=== PATIENT | female | born 1975 | race Caucasian/White ===

== ENCOUNTER 2016-08-29 14:33 | Outpatient (CLI) | payer MEDICAID | END 2016-08-29 14:34 | disposition home or self-care (01) | DX: Z36 Encounter for antenatal screening of mother (principal) ==

== ENCOUNTER 2016-10-31 10:16 | Outpatient (CLI) | payer MEDICAID | END 2016-10-31 10:17 | disposition home or self-care (01) | DX: Z36 Encounter for antenatal screening of mother (principal) ==

== ENCOUNTER 2016-11-27 12:30 | Outpatient (CLI) | payer MEDICAID | END 2016-11-27 12:31 | disposition home or self-care (01) | DX: Z36 Encounter for antenatal screening of mother (principal) ==

== ENCOUNTER 2016-12-24 08:00 | Outpatient (CLI) | payer MEDICAID | END 2016-12-24 08:01 | disposition home or self-care (01) | DX: Z36 Encounter for antenatal screening of mother (principal) ==

== ENCOUNTER 2016-12-25 09:11 | Outpatient (CLI) | payer MEDICAID | END 2016-12-25 09:12 | disposition home or self-care (01) | DX: Z36 Encounter for antenatal screening of mother (principal) ==

== ENCOUNTER 2017-01-05 10:38 | Inpatient (IN) | payer MEDICAID ==
[2017-01-05] MEDS ORDERED: OXYTOCIN 10 UNIT/ML VIAL ONE (11:01)
[2017-01-05] MEDS ORDERED: SODIUM CHLORIDE FLUSH 0.9% 10 ML SYRINGE IVP ONE (11:02)
[2017-01-05] MEDS ORDERED: OXYTOCIN/LACTATED RINGERS 250 ML IV ONE ×3 (11:05→12:17)
[2017-01-05] MEDS ORDERED: LACTATED RINGERS 1,000 ML IV ONE (11:06)
[2017-01-05 11:32] LABS: BASOPHILS # (AUTO) 0.1 10^3/uL (0.0-0.1); BASOPHILS % (AUTO) 0.8 %; EOSINOPHILS # (AUTO) 0.1 10^3/uL (0.0-0.7); EOSINOPHILS % (AUTO) 0.5 %; HCT - HEMATOCRIT 36.9 % (37.0-47.0); HGB - HEMOGLOBIN 12.5 g/dL (12.0-16.0); LYMPHOCYTES # (AUTO) 2.2 10^3/uL (1.5-3.5); LYMPHOCYTES % (AUTO) 19.8 %; MEAN CORPUSCULAR HEMOGLOBIN 28.2 pg (27.0-31.0); MEAN CORPUSCULAR HGB CONC 33.9 g/dL (32.0-36.0); MEAN CORPUSCULAR VOLUME 83.3 fL (81.0-99.0); MEAN PLATELET VOLUME 9.2 fL (7.9-10.8); MONOCYTES # (AUTO) 0.5 10^3/uL (0.0-1.0); MONOCYTES % (AUTO) 4.7 %; NEUTROPHILS # (AUTO) 8.1 10^3/uL (1.5-6.6); NEUTROPHILS % (AUTO) 74.2 %; NUCLEATED RED BLOOD CELLS AUTO 0.1 /100WBC; RED BLOOD COUNT 4.43 10^6/uL (4.20-5.40); RED CELL DISTRIBUTION WIDTH 14.4 % (12.0-15.0)
[2017-01-05] MEDS ORDERED: PENICILLIN G POTASSIUM 5,000,000 UNIT in SODIUM CHLORIDE 0.9% MINIBAG 100 ML IV ONE (12:09)
[2017-01-05] MEDS ORDERED: SODIUM CHLORIDE FLUSH 0.9% 10 ML SYRINGE IVP PRN (12:09)
[2017-01-05] MEDS ORDERED: HYDROCORTISONE/PRAMOXINE 10 GM PR PRN (12:17)
[2017-01-05] MEDS ORDERED: WITCH HAZEL/GLYCERIN 1 EACH MED..PAD TOP PRN (12:17)
[2017-01-05] MEDS ORDERED: diphenhydrAMINE 25 MG CAPSULE PO PRN (12:17)
[2017-01-05] MEDS ORDERED: ACETAMINOPHEN 325 MG TABLET PO PRN ×2 (12:17→15:55)
[2017-01-05] MEDS ORDERED: ONDANSETRON 4 MG/2 ML VIAL IVP PRN (12:17)
--- NOTE | 2017-01-05 12:28 | HISTORY & PHYSICAL EXAMINATION ---
DATE OF ADMISSION: 01/05/2017 DIAGNOSIS 1. Term (37 weeks 5 days), active labor. 2. Advanced maternal age, multip. 3. History of cervical intraepithelial neoplasia. 4. Tuberculosis status not known. 5. Group B strep positive. HISTORY: The patient is a 41-year-old Citizen Of [place] 6, para 5-0-0-5 woman who reports strong uterine contractions beginning at 0700 without rupture of membranes. She has no signs or symptoms of preeclampsia or recent illness. She was seen at [facility] for 8 visits total. Her last menstrual period was 05/02/2016, yielding an JANA of 02/06/2017. However, ultrasound on 29 August revealed a 19-week 3-day gestation with an EDC of 20 January plus/minus roughly 10 days. She was noted to have an abnormal Pap smear with colposcopy. Currently looking for colposcopy results in the medical record. Additionally, she did not receive a PPD test. In discussing this with the patient, she does not know if she has ever been exposed to TB or if she has ever had TB. In terms of advanced maternal age, [place] free cell DNA testing did not find increased risk for aneuploidy. PAST MEDICAL HISTORY: To the best of her knowledge, there has been no chronic disease history, hospitalizations or surgery. ALLERGIES: NO KNOWN DRUG ALLERGIES. MEDICATIONS: vitamins with iron. SOCIAL HISTORY: Single, , who speaks a Citizen [place] dialect primarily and Wallisian, little Chinese. Partner translates. No drug, tobacco or alcohol use. GENETICS/FAMILY HISTORY: No congenital anomaly or unexplained retardation. REVIEW OF SYSTEMS CONSTITUTIONAL: Negative. CARDIAC: Negative. PULMONARY: Negative. GASTROINTESTINAL: Negative. GENITOURINARY: No STD history. Abnormal Pap smear history as noted above. MUSCULOSKELETAL: Negative. NEUROLOGIC: Occasional headache, not current. DERMATOLOGIC: Negative. PHYSICAL EXAMINATION GENERAL: The patient is very uncomfortable with labor pains, active labor. VITAL SIGNS: Blood pressure 128/90, temp afeb, pulse 76. HEENT: Supple neck. Moist mucous membranes. No thyromegaly EOMI. No jaundice. LUNGS: Clear to auscultation. CARDIAC: Regular. No murmur, no gallop. ABDOMEN: No hepatosplenomegaly. No abdominal tenderness. UTERUS: Gravid. Estimated weight around 6 pounds, vertex presentation, moderate to strong contractions. Normal resting tone. HEART TRACING: Baseline 120s to 130s. Head compression decelerations, variability moderate. EXTERNAL GENITALIA: No lesions. CERVIX: Complete. 0 station. Artificial rupture of membranes. Clear fluid. EXTREMITIES: Nonedematous. NEUROLOGIC: Grossly intact. LABORATORY: Admit labs drawn but not yet processed. ASSESSMENT: This is an advanced maternal age grand-multip in active labor. She is known to be Group B strep positive and we will attempt to get 1 dose of penicillin in prior to delivery. Expect rapid progress and delivery. heart tracing has no concerns at the current time. We will need to research the results of her colposcopy and tuberculosis status. PLAN: Admit with IV fluids and penicillin GBS prophylaxis per protocol. Prepare for vaginal delivery soon. Maintaining communication with the patient through her significant other/common-law . JOB #: [id number] EXT JOB #:[id number] [facility]ON HOSPITALGregoria
[2017-01-05] MEDS ORDERED: MEASLES,MUMPS & RUBELLA VACC 0.5 ML VIAL SUBQ ONE (12:30)
[2017-01-05] MEDS ORDERED: LACTATED RINGERS 1,000 ML IV SCH ×3 (13:00)
[2017-01-05] MEDS: IBUPROFEN 600 MG TABLET PO SCH ×2 (13:00→20:06)
[2017-01-05] MEDS ORDERED: miSOPROStol 200 MCG TABLET ONE (13:37)
[2017-01-05] MEDS ORDERED: SODIUM CHLORIDE FLUSH 0.9% 10 ML SYRINGE IVP SCH (14:00)
[2017-01-05] MEDS ORDERED: miSOPROStol 200 MCG TABLET PO ONE (14:30)
[2017-01-05] MEDS: HYDROcod/ACETAM 5/325 MG TABLET PO PRN (16:00)
[2017-01-06] MEDS: HYDROcod/ACETAM 5/325 MG TABLET PO PRN ×2 (01:15→05:00)
[2017-01-06] MEDS: IBUPROFEN 600 MG TABLET PO SCH ×4 (01:16→19:00)
--- NOTE | 2017-01-06 07:42 | PROVIDER PROGRESS NOTE ---
Subjective - General Admit Date: 01/05/17 Procedure Date: 01/05/17 Post Op Days: 1 Procedure Performed: NVD - Review of Systems Wound/Incisions: positive: Drainage (Min Nonfoul lochia) General: positive: No symptoms HEENT: positive: No symptoms Pulmonary: positive: No symptoms Cardiovascular: positive: No symptoms Gastrointestinal: positive: No symptoms Genitourinary: positive: No symptoms Musculoskeletal: positive: No symptoms Skin: positive: No symptoms Objective - Patient Data Vital Signs: Vital Signs x48h Temp Pulse Resp BP Pulse Ox 01/06/17 07:31 98.4 F 72 19 110/56 L 98 01/06/17 01:19 98.2 F 73 16 114/67 99 Weight: Weight 01/04/17 01/05/17 01/06/17 23:59 23:59 23:59 Weight (kg) 61.689 kg Intake & Output: Intake and Output Totals x24h 01/04/17 01/05/17 01/06/17 23:59 23:59 23:59 Intake Total 1364 Output Total 500 Balance 864 - Lab Results Lab Results: 01/05/17 11:25 Other Lab Results: Lab Results x24hrs 01/05/17 Range/Units 11:25 WBC 11.0 H (4.8-10.8) x10^3/uL RBC 4.43 (4.20-5.40) 10^6/uL Hgb 12.5 (12.0-16.0) g/dL Hct 36.9 L (37.0-47.0) % MCV 83.3 (81.0-99.0) fL MCH 28.2 (27.0-31.0) pg MCHC 33.9 (32.0-36.0) g/dL RDW 14.4 (12.0-15.0) % Plt Count 302 (130-450) 10^3/uL MPV 9.2 (7.9-10.8) fL Neut # 8.1 H (1.5-6.6) 10^3/uL Lymph # 2.2 (1.5-3.5) 10^3/uL [place] # 0.5 (0.0-1.0) 10^3/uL Eos # 0.1 (0.0-0.7) 10^3/uL Baso # 0.1 (0.0-0.1) 10^3/uL Absolute Nucleated RBC 0.01 x10^3/uL Nucleated RBCs 0.1 /100WBC - Current Medications Current Medications: Current Medications Generic Name Dose Route Start Last Admin Trade Name Freq PRN Reason Stop Dose Admin Acetaminophen/Hydrocodone Bitart 1 tab 01/05/17 12:17 01/06/17 05:00 [place] 5/325 PO 1 tab Q4HR PRN Administration PAIN Hydrocortisone/Pramoxine 1 spray 01/05/17 12:17 01/05/17 16:00 Epifoam AK 1 spray QID PRN Administration Hemorrhoids Ibuprofen 600 mg 01/05/17 13:00 01/06/17 01:16 Motrin PO 600 mg Q6H ESTRADA Administration Sodium Chloride 10 ml 01/05/17 14:00 01/05/17 20:10 Normal Saline Flush 0.9% IVP 10 ml Q8HR ESTRADA Administration Witch Rosio/Glycerin 1 each 01/05/17 12:17 01/05/17 16:00 Tucks TOP 1 each QID PRN Administration Hemorrhoids Physical Exam - Physical Exam General: positive: No acute distress HEENT: positive: Moist mucous membranes Neck: positive: Supple w/out meningeal sx Abdomen: positive: Other (Normal Exam) Female : positive: Enlarged uterus (18 Wk, NT) Extremities: positive: Normal ROM, No pedal edema Skin: positive: Warm and dry Neurologic: positive: Alert and Oriented X 3, Normal Sensation Assess/Plan - Additional Planning Condition/Complexity: Stable My Orders: My Active Orders 01/05/17 12:09 Hemorrhage Pack [RC] PRN Sodium Chloride Flush 0.9% [Normal Saline Flush 0.9%] 10 ml IVP PRN PRN Code Status [OTHERS] Routine Condition of Patient [OTHERS] Routine DVT Prophylaxis [OTHERS] Routine 01/05/17 12:16 Activity - [RC] QSHIFT IO [RC] Q4H Ice Pack [RC] PRN Notify Provider - VS Parameter [RC] .notify OB K-PAD [RC] PRN Checks - OB [RC] Q15MX8,Q1HRX2,Q4HRX6,QSHIFT Code Status [OTHERS] Routine Condition of Patient [OTHERS] Routine DVT Prophylaxis [OTHERS] Routine 01/05/17 12:17 HYDROcod/ACETAM 5/325 [[place] 5/325] 1 tab PO Q4HR PRN Hydrocortisone/Pramoxine [Epifoam] 1 spray AK QID PRN Ondansetron Inj [Zofran Inj] 4 mg IVP Q4H PRN Witch Rosio/Glycerin [Tucks] 1 each TOP QID PRN diphenhydrAMINE [Benadryl] 25 mg PO Q6H PRN 01/05/17 12:18 Vital Signs - OB [RC] Q15MX8,Q1HRX2,Q4HRX6,QSHIFT Code Status [OTHERS] Routine Condition of Patient [OTHERS] Routine DVT Prophylaxis [OTHERS] Routine 01/05/17 13:00 Ibuprofen [Motrin] 600 mg PO Q6H Lactated Ringers [Lr] 1,000 ml IV 100 mls/hr 01/05/17 14:00 Sodium Chloride Flush 0.9% [Normal Saline Flush 0.9%] 10 ml IVP Q8HR 01/05/17 15:55 Acetaminophen [Tylenol] 650 mg PO Q4HR PRN 01/06/17 12:18 IV Discontinuation [RC] ONCE Time Spent: Less than 15 minutes (Need to determine TB status;)
[2017-01-06] MEDS ORDERED: MEASLES,MUMPS & RUBELLA VACC 0.5 ML VIAL SUBQ ONE (13:00)
[2017-01-07] MEDS: IBUPROFEN 600 MG TABLET PO SCH ×3 (00:58→13:31)
--- NOTE | 2017-01-07 09:59 | PROCEDURE REPORT ---
DATE OF PROCEDURE: 01/05/2017 00:00:00 PRE-DELIVERY DIAGNOSIS 1. Term (37 weeks 5 days) in active labor. 2. Advanced maternal age. 3. Maternal Group B strep colonization. 4. Tuberculosis status unknown. 5. Gestational diabetes. 6. History of cervical intraepithelial neoplasia. POST-DELIVERY DIAGNOSES 1. Term (37 weeks 5 days) in active labor. 2. Advanced maternal age. 3. Maternal Group B strep colonization. 4. Tuberculosis status unknown. 5. Gestational diabetes. 6. History of cervical intraepithelial neoplasia. 7. Grade 3 placenta. 6. Nuchal Cord PROCEDURE: Vaginal delivery of a living male . HR SHARED SERVICES CONSULTANT: Justo Pfeiffer MD, FACOG, FICS. ANESTHESIA: None. COMPLICATIONS: None. ESTIMATED BLOOD LOSS: 300 mL. DRAINS: None. FINDINGS 1. At 0801 hours, a living male was born weighing 6 pounds 6 ounces and scoring Apgars of 9 and 9. There were no congenital anomalies or trauma noted. 2. Shortly thereafter, the placenta was delivered intact and found to be grade 3. 3. Inspection of the perineum, vagina, and cervix finds anatomy completely intact. TECHNIQUE: The patient arrived in active phase of labor close to completion. IV fluid and first dose of penicillin were immediately started. The patient began to grunt spontaneously and quickly brought the head to the perineum. The fetus crowned atraumatically, and there was no difficulty in delivery of the shoulders. There was a nuchal cord x1 that the patient delivered through. was placed on the maternal abdomen for [id number] contact. Cord was doubly clamped and transected. Cord blood was sent. Shortly thereafter, the placenta delivered intact and was inspected. Uterus responded to massage and Pitocin. Later, Cytotec 600 mcg was given oral. Mother and father and child all bonded well. We will draw a QuantiFERON to determine TB status. MMR Candidate. Pediatrics informed of only a single dose of penicillin given. JOB #: [id number] EXT JOB #:[id number] MTDD
--- NOTE | 2017-01-07 10:31 | DISCHARGE SUMMARY ---
DATE OF ADMISSION: 01/05/2017 DATE OF DISCHARGE: 01/07/2017 DIAGNOSES 1. Term (37 weeks 5 days), active labor. 2. Advanced maternal age, multiparous. 3. Tuberculosis status unknown. 4. Group B strep maternal colonization, only 1 dose of antibiotics prior to delivery. 5. Gestational diabetes. 6. Language barrier, patient only speaks [facility] dialect. 7. Nuchal cord. 8. Rapid delivery. PROCEDURES: Vaginal delivery over an intact perineum. COMPLICATIONS: None. HISTORY OF PRESENT ILLNESS: The patient she is a 41-year-old 6, para 5-0 -0-5, woman who reported strong uterine contractions at 0700 hours without rupture of membranes. During the course, she was noted to have an abnormal 3-hour glucose tolerance test, but did not return phone calls and failed to make arrangements for dietary counseling and diabetic management. She had an abnormal Pap smear with colposcopy. In addition, she had no PPD and does not know her TB exposure status, but did not have any vaccination. Reference type written History and Physical. HOSPITAL COURSE: The patient presented in active labor and rapidly progressed. Only a single dose of penicillin was given prior to delivery. Throughout, the heart tracing remained category I. She experienced an atraumatic delivery of a living 6 pound 6 ounce male . Reference delivery note. Total blood loss was 300. The patient rapidly advanced to a full diet and activity. She nursed well without difficulty. She and the were observed for 48 hours post delivery due to GBS status. QuantiFERON was drawn to investigate TB status. Social Work consultation was obtained to insure adequate living situation, nutrition, and car seat. The patient's blood type is O positive and RhoGAM was not required. Rubella status was nonimmune, and she received MMR injection. On postdelivery day #2, she was prepared for discharge. Intensive nursing instruction on self-care and care was given and all questions answered. DISCHARGE MEDICATIONS 1. Motrin [id number] as needed. 2. vitamins and iron. DISPOSITION: Patient will be seen in 1 week at the women's clinic to ensure TB status is determined and if needed a chest x-ray/ treatment given. Colposcopy Needed. 30 days DM screening required. The patient will be seen in 6 weeks for routine check. JOB #: [id number] EXT JOB #:[id number] MTDGregoria
[2017-01-07 13:30] VITALS: BP 110/74
== END 2017-01-07 13:32 | disposition home or self-care (01) | DRG 775 ==
LOC: WFO 10:38 → OB 10:44 → WFO 11:00 → OB 11:05
PROVIDERS: ADMIT Obstetrics & Gynecology; ATTEND Obstetrics & Gynecology
PROC: 10E0XZZ Delivery of Products of Conception, External Approach (ICD-10-PCS; principal; 2017-01-05)
PROC: 10907ZC Drainage of Amniotic Fluid, Therapeutic from Products of Conception, Via Natural or Artificial Opening (ICD-10-PCS; 2017-01-05)
DX: O99.824 Streptococcus B carrier state complicating childbirth (principal); O62.3 Precipitate labor; O24.429 Gestational diabetes mellitus in childbirth, unspecified control; O69.81X0 Labor and delivery complicated by cord around neck, without compression, not applicable or unspecified; Z37.0 Single live birth; Z23 Encounter for immunization; Z87.410 Personal history of cervical dysplasia; Z3A.37 37 weeks gestation of pregnancy; Z20.1 Contact with and (suspected) exposure to tuberculosis
CPT/HCPCS: 36415; 85025; 86480; 99213

== ENCOUNTER 2017-01-14 16:57 | Outpatient (CLI) | payer MEDICAID ==
[2017-01-24 10:34] LABS: NIL 0.06; QUANTIFERON(R) - TB GOLD NEGATIVE
[2017-01-24 10:35] LABS: TB-NIL 0.01
== END 2017-01-14 16:58 | disposition home or self-care (01) ==
LOC: LAB 16:57
PROVIDERS: ATTEND Obstetrics & Gynecology
DX: Z39.2 Encounter for routine postpartum follow-up (principal)
CPT/HCPCS: 86480

== ENCOUNTER 2018-04-16 15:05 | Outpatient (CLI) | payer MEDICAID ==
--- NOTE | 2018-04-20 14:01 | Ultrasound Report ---
Reason: ENCOUNTER FOR TEST RESULT POSITIVE Procedure Date: 04/16/2018 Accession Number: [id number] / [id number] Procedure: US - OB 14+ Weeks CPT Code: FULL RESULT: EXAM: LIMITED OBSTETRICAL ULTRASOUND EARLY SECOND TRIMESTER EXAM DATE: 04/16/2018 05:20 PM. CLINICAL HISTORY: ENCOUNTER FOR TEST RESULT POSITIVE. Dating. Patient is unsure of LMP. COMPARISON: None. TECHNIQUE: Real-time sonographic evaluation of the fetus performed by the transmission mechanic. Multiple agricultural sales representative static images were saved for review. DATING: Established EGA 16 weeks 1 day with JANA 09/30/2018 based on today's ultrasound. GENERAL EVALUATION [place] . Cardiac activity: 152 bpm. movement: Visualized. Presentation: Variable Placenta: Anterior position. No evidence for previa. Amniotic fluid: Subjectively normal. MVP 3.2 cm. BIOMETRY Bi-Parietal Diameter (BPD): 3.4 cm, 16 weeks 3 days Head Circumference (HC): 12.4 cm, 16 weeks 1 day Abdominal Circumference (AC): 10.2 cm, 16 weeks 1 day Femur Length (FL): 2.0 cm, 16 weeks 0 days Estimated Weight: 145 gm ANATOMY Within the limits of early second trimester ultrasound, no anatomic abnormality is detected. The profile/nasal bone, visualized intracranial structures, nuchal region, anterior abdominal wall, cord insert region, stomach, and bladder are visualized and appear normal for gestational age. Cardiac situs is normal. Both upper and lower extremities are visualized. MATERNAL STRUCTURES Uterus: Unremarkable. Cervix: Long and closed. 4.2 cm. Right ovary/adnexa: Unremarkable. Left ovary/adnexa: Unremarkable. Free fluid: None. IMPRESSION: 1. [place] live intrauterine with gestational age 16 weeks 1 day based on today's ultrasound. JANA 09/30/2018 2. Normal early second trimester anatomy. No anatomic abnormalities are seen at this time. Note: Detailed anatomic survey at 18-22 weeks is recommended for all fetuses evaluated prior to 18 weeks, as some structural abnormalities may be inapparent at earlier gestational ages. RADIA
== END 2018-04-16 15:06 | disposition home or self-care (01) ==
LOC: DI 15:05
PROVIDERS: ATTEND Obstetrics & Gynecology
DX: Z32.01 Encounter for pregnancy test, result positive (principal); Z3A.16 16 weeks gestation of pregnancy
CPT/HCPCS: 76805

== ENCOUNTER 2018-05-12 06:36 | Outpatient (CLI) | payer MEDICAID ==
[2018-05-12 07:01] LABS: BILIRUBIN,URINE NEGATIVE (NEGATIVE); GLUCOSE, URINE (UA) NEGATIVE (NEGATIVE); KETONES,URINE (UA) NEGATIVE (NEGATIVE); LEUKOCYTE ESTERASE, URINE NEGATIVE (NEGATIVE); NITRITE,URINE NEGATIVE (NEGATIVE); OCCULT BLOOD,URINE NEGATIVE (NEGATIVE); PROTEIN,URINE NEGATIVE (NEGATIVE); UROBILINOGEN,URINE 0.2 (NORMAL) E.U./dL (NORMAL)
[2018-05-12 07:03] LABS: BASOPHILS # (AUTO) 0.1 10^3/uL (0.0-0.1); BASOPHILS % (AUTO) 0.9 %; EOSINOPHILS # (AUTO) 0.3 10^3/uL (0.0-0.7); EOSINOPHILS % (AUTO) 3.6 %; LYMPHOCYTES # (AUTO) 2.3 10^3/uL (1.5-3.5); LYMPHOCYTES % (AUTO) 25.7 %; MEAN CORPUSCULAR HEMOGLOBIN 32.3 pg (27.0-31.0); MEAN CORPUSCULAR HGB CONC 35.6 g/dL (32.0-36.0); MEAN CORPUSCULAR VOLUME 90.7 fL (81.0-99.0); MEAN PLATELET VOLUME 7.7 fL (7.9-10.8); MONOCYTES # (AUTO) 0.5 10^3/uL (0.0-1.0); MONOCYTES % (AUTO) 6.1 %; NEUTROPHILS # (AUTO) 5.6 10^3/uL (1.5-6.6); NEUTROPHILS % (AUTO) 63.7 %; PLT - PLATELET COUNT 374 10^3/uL (130-450); RED BLOOD COUNT 4.02 10^6/uL (4.20-5.40); RED CELL DISTRIBUTION WIDTH 14.7 % (12.0-15.0); WHITE BLOOD COUNT 8.8 x10^3/uL (4.8-10.8)
[2018-05-12 07:09] LABS: BACTERIA,URINE None Seen /HPF (None Seen); CLARITY,URINE CLEAR (CLEAR); RBC,URINE 0-5 /HPF (0-5); SQUAMOUS EPITHELIAL CELL,UR RARE Squamous (<= Few)
[2018-05-13 13:56] LABS: HEPATITIS C ANTIBODY NON-REACTIVE (NON-REACTIVE)
[2018-05-13 14:21] LABS: HEPATITIS B SURFACE ANTIGEN NON-REACTIVE (NON-REACTIVE)
[2018-05-13 16:05] LABS: HIV AG/AB 4TH GEN NON-REACTIVE (NON-REACTIVE)
== END 2018-05-12 06:37 | disposition home or self-care (01) ==
LOC: LAB 06:36
PROVIDERS: ATTEND Obstetrics & Gynecology
DX: O09.511 Supervision of elderly primigravida, first trimester (principal); Z36.9 Encounter for antenatal screening, unspecified
CPT/HCPCS: 36415; 81001; 81599; 85025; 86592; 86762; 86803; 86850; 86900; 86901; 87340; 87389

== ENCOUNTER 2018-05-19 16:14 | Outpatient (CLI) | payer MEDICAID | END 2018-05-19 16:15 | disposition home or self-care (01) | LOC: LAB 16:14 | PROVIDERS: ATTEND Obstetrics & Gynecology | DX: Z36.9 Encounter for antenatal screening, unspecified (principal) | CPT/HCPCS: 36415; 81599 ==

== ENCOUNTER 2018-06-24 07:28 | Outpatient (CLI) | payer MEDICAID ==
--- NOTE | 2018-06-24 14:18 | Ultrasound Report ---
Reason: ENCOUNTER FOR SCREENING,UNSPECIFIED Procedure Date: 06/24/2018 Accession Number: [id number] / [id number] Procedure: US - OB Detailed Eval CPT Code: FULL RESULT: EXAM: COMPLETE OBSTETRICAL ULTRASOUND EXAM DATE: 06/24/2018 09:39 AM. CLINICAL HISTORY: anatomic survey. COMPARISON: None. TECHNIQUE: Real-time sonographic evaluation of the fetus performed by the power equipment technology instructor. Multiple commercial sales representative static images were saved for review. DATING: Established EGA 26 weeks 0 days with JANA 09/30/2018 based on obstetric physician stated JANA/prior ultrasound. EGA 25 weeks and 5 days with JANA 10/02/2018 based on the current ultrasound. GENERAL EVALUATION [place] . Cardiac activity: 169 bpm. movement: Visualized. Presentation: Cephalic. Placenta: Anterior position. No evidence for previa. Umbilical cord: 3 vessel cord. Central placental cord origin. Amniotic fluid: GERRI 17.8 MVP 3.3 cm. BIOMETRY Bi-Parietal Diameter (BPD): 6.3 cm, 25 weeks 4 days Head Circumference (HC): 23.9 cm, 25 weeks 6 days Abdominal Circumference (AC): 21.4 cm, 25 weeks 6 days Femur Length (FL): 4.6 cm, 25 weeks 3 days Estimated Weight: 842 g, 28th percentile for 26 weeks 0 days. ANATOMY Visualization of the ventricular outflow tracts was limited. The intracranial structures, profile, face/nose/lips, spine, 4 chamber heart, stomach, abdominal wall and cord insertion, diaphragm, kidneys, bladder, and extremities were visualized and demonstrate no abnormality. MATERNAL STRUCTURES Uterus: Unremarkable. Cervix: Long and closed. Transabdominal length 4.3 cm. Right ovary/adnexa: Unremarkable. Left ovary/adnexa: Unremarkable. Free fluid: None. IMPRESSION: 1. [place] live intrauterine with gestational age 26 weeks 0 days based on established due date per the referring physician. 2. Estimated weight is within expected limits for assigned dating. 3. Limited visualization of ventricular outflow tracts. No anatomic abnormalities are detected at this time. RADIA
== END 2018-06-24 07:29 | disposition home or self-care (01) ==
LOC: DI 07:28
PROVIDERS: ATTEND Obstetrics & Gynecology
DX: Z36.9 Encounter for antenatal screening, unspecified (principal); Z3A.26 26 weeks gestation of pregnancy
CPT/HCPCS: 76811

== ENCOUNTER 2018-07-10 12:45 | Outpatient (CLI) | payer MEDICAID ==
--- NOTE | 2018-07-10 14:47 | Ultrasound Report ---
Reason: ENCNTR FOR SUPRVSN OF NORMAL ,UNSP,UNSP T Procedure Date: 07/10/2018 Accession Number: [id number] / [id number] Procedure: US - OB F/U or Repeat CPT Code: FULL RESULT: EXAM: COMPLETE OBSTETRICAL ULTRASOUND EXAM DATE: 07/10/2018 01:50 PM. CLINICAL HISTORY: Completion anatomy survey, specific evaluation of the left and right ventricular outflow tracts. COMPARISON: Obstetric ultrasound 06/24/2018. TECHNIQUE: Real-time sonographic evaluation of the fetus performed by the recording clerk. Multiple corporate sales representative static images were saved for review. DATING: Established EGA 28 weeks 2 days with JANA 09/30/2018 based on referring physician information. GENERAL EVALUATION Miller . Cardiac activity: 132 bpm. movement: Visualized. Presentation: Cephalic. Placenta: Anterior position. No evidence for previa. Amniotic fluid: GERRI 15.6 MVP 4.6 cm. ANATOMY Cardiac outflow tracts are adequately visualized and appear normal. MATERNAL STRUCTURES Uterus: Unremarkable. Cervix: Long and closed. Transabdominal length 3.7 cm. Free fluid: None. IMPRESSION: 1. Miller live intrauterine with gestational age 28 weeks 2 days based on referring physician provided JANA. 2. Normal right and left ventricular outflow tracts. RADIA
== END 2018-07-10 12:46 | disposition home or self-care (01) ==
LOC: DI 12:45
PROVIDERS: ATTEND Obstetrics & Gynecology
DX: Z34.90 Encounter for supervision of normal pregnancy, unspecified, unspecified trimester (principal); Z3A.28 28 weeks gestation of pregnancy
CPT/HCPCS: 76816

== ENCOUNTER 2018-07-28 14:32 | Outpatient (CLI) | payer MEDICAID ==
[2018-07-28 14:59] LABS: HGB - HEMOGLOBIN 12.4 g/dL (12.0-16.0); MEAN CORPUSCULAR HEMOGLOBIN 29.4 pg (27.0-31.0); MEAN CORPUSCULAR HGB CONC 33.6 g/dL (32.0-36.0); MEAN CORPUSCULAR VOLUME 87.7 fL (81.0-99.0); MEAN PLATELET VOLUME 7.8 fL (7.9-10.8); RED BLOOD COUNT 4.21 10^6/uL (4.20-5.40); RED CELL DISTRIBUTION WIDTH 13.9 % (12.0-15.0)
== END 2018-07-28 14:33 | disposition home or self-care (01) ==
LOC: LAB 14:32
PROVIDERS: ATTEND Obstetrics & Gynecology
DX: O09.899 Supervision of other high risk pregnancies, unspecified trimester (principal)
CPT/HCPCS: 36415; 82950; 85027; 86850

== ENCOUNTER 2018-08-03 08:03 | Outpatient (CLI) | payer MEDICAID | END 2018-08-03 08:04 | disposition home or self-care (01) | LOC: LAB 08:03 | PROVIDERS: ATTEND Obstetrics & Gynecology | DX: R73.9 Hyperglycemia, unspecified (principal) | CPT/HCPCS: 36415; 82951; 82952 ==

== ENCOUNTER 2018-09-03 14:20 | Outpatient (CLI) | payer MEDICAID | END 2018-09-03 14:21 | disposition home or self-care (01) | LOC: LAB.R 14:20 | PROVIDERS: ATTEND Obstetrics & Gynecology | DX: K21.9 Gastro-esophageal reflux disease without esophagitis (principal); O09.899 Supervision of other high risk pregnancies, unspecified trimester | CPT/HCPCS: 87797 ==

== ENCOUNTER 2018-09-08 15:21 | Outpatient (CLI) | payer MEDICAID ==
[2018-09-08 16:08] LABS: HEMOGLOBIN A1C 0.45 g/dL; HEMOGLOBIN A1C % 5.3 % (4.6-6.2)
== END 2018-09-08 15:22 | disposition home or self-care (01) ==
LOC: LAB 15:21
PROVIDERS: ATTEND Obstetrics & Gynecology
DX: O24.419 Gestational diabetes mellitus in pregnancy, unspecified control (principal); O09.899 Supervision of other high risk pregnancies, unspecified trimester; Z3A.36 36 weeks gestation of pregnancy
CPT/HCPCS: 36415; 83036

== ENCOUNTER 2018-09-12 12:43 | Inpatient (IN) | payer MEDICAID ==
[2018-09-12] MEDS ORDERED: fentaNYL 100 MCG/2 ML VIAL IVP PRN (13:20)
[2018-09-12] MEDS ORDERED: ONDANSETRON 4 MG/2 ML VIAL IVP PRN (13:20)
[2018-09-12] MEDS ORDERED: SODIUM CHLORIDE FLUSH 0.9% 10 ML SYRINGE IVP PRN (13:20)
[2018-09-12] MEDS ORDERED: LACTATED RINGERS 1,000 ML IV ONE (13:29)
[2018-09-12] MEDS ORDERED: LIDOCAINE-MPF 1% 30 ML VIAL ONE (13:29)
[2018-09-12] MEDS ORDERED: OXYTOCIN/SODIUM CHLORIDE 500 ML IV ONE (13:29)
[2018-09-12] MEDS ORDERED: SODIUM CHLORIDE FLUSH 0.9% 10 ML SYRINGE ONE (13:29)
[2018-09-12] MEDS ORDERED: miSOPROStol 200 MCG TABLET ONE (13:29)
[2018-09-12] MEDS: LACTATED RINGERS 1,000 ML IV SCH (13:40)
[2018-09-12] MEDS ORDERED: OXYTOCIN/SODIUM CHLORIDE 500 ML IV SCH ×2 (14:00→14:13)
[2018-09-12] MEDS ORDERED: LACTATED RINGERS 1,000 ML IV SCH (14:00)
[2018-09-12 14:09] LABS: BASOPHILS # (AUTO) 0.1 10^3/uL (0.0-0.1); BASOPHILS % (AUTO) 0.8 %; EOSINOPHILS % (AUTO) 0.3 %; HGB - HEMOGLOBIN 12.4 g/dL (12.0-16.0); LYMPHOCYTES # (AUTO) 1.4 10^3/uL (1.5-3.5); LYMPHOCYTES % (AUTO) 13.6 %; MEAN CORPUSCULAR HGB CONC 33.4 g/dL (32.0-36.0); MEAN CORPUSCULAR VOLUME 83.8 fL (81.0-99.0); MEAN PLATELET VOLUME 8.9 fL (7.9-10.8); MONOCYTES # (AUTO) 0.5 10^3/uL (0.0-1.0); MONOCYTES % (AUTO) 5.3 %; NEUTROPHILS # (AUTO) 8.2 10^3/uL (1.5-6.6); PLT - PLATELET COUNT 320 10^3/uL (130-450); RED BLOOD COUNT 4.44 10^6/uL (4.20-5.40); RED CELL DISTRIBUTION WIDTH 14.7 % (12.0-15.0); WHITE BLOOD COUNT 10.3 x10^3/uL (4.8-10.8)
[2018-09-12] MEDS ORDERED: WITCH HAZEL/GLYCERIN 1 EACH MED..PAD TOP PRN (14:10)
[2018-09-12] MEDS ORDERED: HYDROCORTISONE/PRAMOXINE 10 GM PR PRN (14:10)
[2018-09-12] MEDS ORDERED: diphenhydrAMINE 25 MG CAPSULE PO PRN (14:10)
--- NOTE | 2018-09-12 14:16 | DELIVERY NOTE ---
Delivery Note - Labor Labor: positive: Spontaneous - Delivery Method Delivery Method: positive: Spontaneous vaginal delivery - Presentation Presentation: positive: Vertex, ROP - right occiput posterior - Nuchal Cord Nuchal Cord: positive: Present (Nuchal cord x1; not a factor in delivery) - Amniotic Fluid Description Amniotic Fluid Description: positive: Clear - Episiotomy Type Episiotomy Type: positive: None - Laceration Laceration: positive: None - Delivery Outcome Delivery Outcome: positive: Livebirth - [place]: positive: Placed in direct skin contact with mother, Stimulated, [place] used sex: positive: Female (At 1355 hrs. a living female was born weighing 2755 and scoring Apgars of 9/9) - Cord Cord: positive: 3 vessels - Placenta Placenta: positive: Intact (Placenta had evidence of abruption over 10-15% of surface area; overall grade 2 placenta) - Estimated Blood Loss Estimated Blood Loss (in cc): 200 - Post Delivery Events Post Delivery Events: positive: No post delivery events - Delivery Comments (Free Text/Narrative) Delivery Comments (Free Text/Narrative): I was called at 1321 hrs. and proceeded immediately to [facility]. And arrived at 1336 hrs. Patient was deep in the throes of labor and ready to push. She was involuntarily grunting. Cervical exam was 9 cm 0 station 100%, ROP with slight asynclitism. Brief history was taken via pourer metal since the patient only speaks a Mayan dialect and not Azerbaijani or Gambian. Reference records. Shortly thereafter the patient arrived at completion (approximately 1350 hrs.). I manually rotated to the OA position. Patient pushed with good effort and smoothly brought the head to the perineum. was atraumatic. The nuchal cord was manually reduced and not a factor in a delivery. Shoulders were atraumatically delivered. girl was placed on maternal abdomen and began to cry. Placenta was delivered intact at 1358 hrs. Inspection findings small area of abruption approximately 10-15%. Inspection of the perineum vagina and cervix find all to be intact. Uterus responded well to Pitocin and massage and blood loss was minimal.
[2018-09-12] MEDS: IBUPROFEN 600 MG TABLET PO SCH ×2 (15:10→21:08)
[2018-09-12] MEDS: ACETAMINOPHEN 500 MG TABLET PO SCH ×2 (15:10→22:58)
[2018-09-12] MEDS: DOCUSATE SODIUM 100 MG CAPSULE PO SCH (21:08)
[2018-09-13] MEDS: IBUPROFEN 600 MG TABLET PO SCH ×3 (04:26→17:53)
[2018-09-13] MEDS: ACETAMINOPHEN 500 MG TABLET PO SCH ×4 (06:41→22:27)
[2018-09-13] MEDS: SODIUM CHLORIDE FLUSH 0.9% 10 ML SYRINGE IVP SCH ×3 (06:42→17:54)
[2018-09-13] MEDS: SIMETHICONE CHEW 80 MG TABLET PO SCH ×2 (06:42→17:54)
[2018-09-13] MEDS: LACTATED RINGERS 1,000 ML IV SCH (06:42)
[2018-09-13] MEDS: DOCUSATE SODIUM 100 MG CAPSULE PO SCH ×2 (10:20→20:55)
--- NOTE | 2018-09-13 10:40 | PROVIDER PROGRESS NOTE ---
Subjective - Prog Note Date Prog Note Date: 09/13/18 Prog Note Time: 10:00 - Subjective Subjective: Patient is status post normal vaginal delivery and reports no problems. Pain is controlled. No signs or symptoms of preeclampsia. Prior to delivery patient expressed's desire for tubal ligation. However paperwork and appropriate consents not to on his chart at this time. Objective - Vital Signs/Intake & Output Vital Signs: Vital Signs x48h Temp Pulse Resp BP Pulse Ox 09/13/18 08:21 97.9 F 68 18 118/62 98 09/13/18 05:59 97.7 F 57 L 16 129/78 99 Intake & Output: Intake & Output 09/10/18 09/11/18 09/12/18 09/13/18 23:59 23:59 23:59 23:59 Intake Total 642.916 Output Total 200 Balance 442.916 - Lab Results Fish Bones: 09/12/18 13:38 Other Labs: Lab Results x24hrs 09/12/18 Range/Units 13:38 WBC 10.3 (4.8-10.8) x10^3/uL RBC 4.44 (4.20-5.40) 10^6/uL Hgb 12.4 (12.0-16.0) g/dL Hct 37.2 (37.0-47.0) % MCV 83.8 (81.0-99.0) fL MCH 28.0 (27.0-31.0) pg MCHC 33.4 (32.0-36.0) g/dL RDW 14.7 (12.0-15.0) % Plt Count 320 (130-450) 10^3/uL MPV 8.9 (7.9-10.8) fL Neut # (Auto) 8.2 H (1.5-6.6) 10^3/uL Lymph # (Auto) 1.4 L (1.5-3.5) 10^3/uL [place] # (Auto) 0.5 (0.0-1.0) 10^3/uL Eos # (Auto) 0.0 (0.0-0.7) 10^3/uL Baso # (Auto) 0.1 (0.0-0.1) 10^3/uL Absolute Nucleated RBC 0.00 x10^3/uL Nucleated RBC % 0.0 /100WBC Physical Exam - Physical Exam General: positive: No acute distress, Alert HEENT: positive: Moist mucous membranes Neck: positive: Supple w/out meningeal sx Abdomen: positive: Normal Bowel sounds (No tenderness) Female : positive: Normal external, Other (Mild non-foul lochia) Extremities: positive: Normal ROM, No pedal edema Skin: positive: Warm and dry Neurologic: positive: Alert and Oriented X 3, Normal motor/no weakness, Normal Sensation Assessment/Plan - Assessment/Plan Assessment: Patient underwent a normal vaginal delivery and requires another day for recovery. Language barrier is a concern. Currently patient is chosen to bottle feed however nursing education through Mayan gas shovel operator would be helpful. Blood loss was small during the delivery and she was not anemic; therefore, I will not recheck a H&H. Do not recommend sterilization procedure until I can ensure she has been appropriately counseled in her own language and all prerequisite consents completed. Plan: Supportive care and reevaluation in the morning Counseling on benefits of breast-feeding through a Mayan foreign language interpreter.
--- NOTE | 2018-09-13 14:37 | HISTORY & PHYSICAL EXAMINATION ---
DATE OF SERVICE: 09/12/2018 Physician: Justo Pfeiffer MD DIAGNOSES 1. Grand multiparous. 2. Active labor. 3. 37-week 3-day gestation. 4. Advanced maternal age. HISTORY OF PRESENT ILLNESS: Patient is a [place]ian, 43-year-old woman ( 7, para 6-0-0-6), who presents unannounced to Labor and Delivery deep into the active phase of labor. There is no evidence of ruptured membranes, preeclampsia, or recent illness. [facility] She has a total of 6 visits. This interview was done with the aid of a Mayan language speaking individual. Patient does not speak Spanish or Tongan, though she has some limited understanding in both. Estimated due date is 09/30 based on 16-week ultrasound. OBSTETRICAL LABS: Blood type O positive, antibody screen negative, GC and chlamydia negative, pap smear ASCUS, HPV negative. [place] negative, hepatitis C negative. HIV negative. RPR negative. Hepatitis B surface antigen negative. PMH/PSH: Patient denies cardiovascular disease, chronic disease or tuberculosis exposure. ALLERGIES: NO KNOWN ALLERGIES. MEDICATIONS: vitamins and iron. FAMILY HISTORY: No known inheritable or genetic diseases reported. SOCIAL HISTORY: Wallisian. All of her prior children living in [facility], [facility] language speaking only. No drug, tobacco or alcohol use. REVIEW OF SYSTEMS CONSTITUTIONAL: No recent fevers or illness. HEENT: Negative. PULMONARY: Negative. CARDIOVASCULAR: Negative. GASTROINTESTINAL: Negative. GENITOURINARY: Negative. MUSCULOSKELETAL: Negative. NEUROLOGIC: Negative. PSYCHIATRIC: Negative. PHYSICAL EXAMINATION GENERAL: At the time of first encounter, patient was deep in the active phase of labor and obviously uncomfortable but rather stoic. VITAL SIGNS: Blood pressure with pain, 132/65, but in general 120/60. Respirations 16. Pulse mid 60s. Afebrile, 98.1. HEENT: Supple neck. No thyromegaly. Dental caries. LUNGS: Clear. CARDIAC: Regular. BREASTS: Full. No masses noted. . ABDOMEN: At time of initial evaluation, no tenderness. Uterus slightly smaller than expected. Expect a 6 to 6-1/2-pound fetus. GENITALIA: External genitalia no lesions. VAGINA: No blood or discharge. CERVIX: 9 cm, 0 station, 100% effaced. External tracing category 1, baseline 135-140. Moderate variability, occasional early decel. EXTREMITIES: Nonedematous. Normal motion. NEUROLOGIC: Grossly intact. SKIN: Warm and dry. PSYCHOLOGIC: Anxious with labor. ADMISSION LABORATORY DATA: Hemoglobin 12.4, white count 10.3. ASSESSMENT: This is a grand multipara progressing rapidly as expected. Anticipate a vaginal delivery soon. No concerns currently about wellbeing. Communication is a barrier; however, there is a Mayan language speaking individual in the room helping with translation. PLAN: Prepare for vaginal delivery. TD: 09/13/2018 10:48 MTDD
[2018-09-14] MEDS: IBUPROFEN 600 MG TABLET PO SCH ×2 (02:20→10:32)
[2018-09-14] MEDS: ACETAMINOPHEN 500 MG TABLET PO SCH ×2 (06:14→13:43)
[2018-09-14] MEDS: DOCUSATE SODIUM 100 MG CAPSULE PO SCH (10:32)
--- NOTE | 2018-09-14 14:49 | Discharge Plan ---
Discharge Plan Disposition: 01 Home, Self Care Condition: Good Diet: Regular Activity Restrictions: Activity as Tolerated Shower Restrictions: No Driving Restrictions: No No Smoking: If you smoke, Please STOP! Call for help. Follow-up with: Justo Pfeiffer MD [Provider Admit Priv/Credential] -
[2018-09-14 15:31] VITALS: BP 116/70
--- NOTE | 2018-09-14 17:44 | Labor Flowsheet ---
Labor Flowsheet Datetime Report Generated by CPN: 09/14/2018 17:44 Datetime: 09/14/2018 15:30 VITAL SIGNS NBP Sys/Zuleyma/Mean (mmHg): 116 : 70 : 80 Pulse: 70 Datetime: 09/12/2018 15:14 Membranes Ruptured Date/Time: 09/12/2018 13:48 Datetime: 09/12/2018 15:00 SpO2 (%): 99 Datetime: 09/12/2018 13:47 UTERINE ACTIVITY Monitor Mode: External Frequency (min): 3-4 Quality: Moderate Duration (sec): 60-100 Resting Tone (Palpate): Relaxed ASSESSMENT A Monitor Mode: Telemetry FHR Baseline Rate : 125 Variability: Moderate 6-25 bpm Accelerations: 15X15 Decelerations: Variable Category: Category II Membrane Status: Ruptured Membranes Rupture Method: Artificial Amniotic Fluid Color: Clear Amniotic Fluid Amount: Small Amniotic Fluid Odor: Normal PATIENT CARE Oxygen Method: Room Air Datetime: 09/12/2018 13:40 VAGINAL EXAM Dilatation (cm): 9.5 Effacement (%): 100 Station: 0 Exam by: Dr Pfeiffer Vaginal Bleeding: Normal Show Cervix, Consistency: Soft Cervix, Position: Anterior Vaginal Exam Comments: just a rim of cervix
--- NOTE | 2018-09-15 00:36 | DISCHARGE SUMMARY ---
Physician: Justo Pfeiffer MD DATE OF ADMISSION: 09/12/2018 DATE OF DISCHARGE: 09/14/2018 DIAGNOSES 1. Grand multiparous in active labor. 2. A 37-week, 3 day-gestation. 3. Advanced maternal age. 4. Rapid labor. 5. Partial abruption. PROCEDURE; Vaginal Delivery COMPLICATIONS: None HISTORY: The patient is a [place]riot 43-year-old 7, para 6-0-0-6 woman who presented unannounced to Labor and Delivery deep in the active phase of labor. There was no ruptured membranes. There was no evidence of infection or pre-eclampsia. Reference my history and physical. HOSPITAL COURSE: Patient went on to deliver uneventfully a female weighing 2755 grams, scoring Apgars of 9 and 9. There was clear fluid at the time of delivery. Placenta was delivered intact, but had a partial abruption approximately 10%-15%. Additionally, there was a nuchal cord, but it was not a factor in delivery. Total blood loss was 200. , patient did well rapidly advancing to full diet and activity. On post-delivery day 1, she required some rest and supportive care and was kept overnight. On day #2, she was anxious to go home. Complete wound care and followup instructions were given through computer operations technician. DISCHARGE MEDICATIONS 1. vitamins and iron. 2. Qnxt-fex-artshtu Motrin. Follow up in 2 weeks and 6 weeks. TD: 09/14/2018 14:56 MTDD
== END 2018-09-14 16:30 | disposition home or self-care (01) | DRG 805 ==
LOC: WFO 12:43 → FBP 12:45 → WFO 13:19 → FBP 13:20
PROVIDERS: ADMIT Obstetrics & Gynecology; ATTEND Obstetrics & Gynecology
PROC: 10E0XZZ Delivery of Products of Conception, External Approach (ICD-10-PCS; principal; 2018-09-12)
DX: O62.3 Precipitate labor (principal); O45.93 Premature separation of placenta, unspecified, third trimester; Z37.0 Single live birth; Z3A.37 37 weeks gestation of pregnancy; O69.81X0 Labor and delivery complicated by cord around neck, without compression, not applicable or unspecified; O76 Abnormality in fetal heart rate and rhythm complicating labor and delivery
CPT/HCPCS: 85025; 99213

== ENCOUNTER 2022-10-21 09:07 | Outpatient (CLI) | payer MEDICAID ==
[2022-10-21 09:38] LABS: BASOPHILS # (AUTO) 0.1 10^3/uL (0.0-0.1); BASOPHILS % (AUTO) 1.9 %; EOSINOPHILS # (AUTO) 0.5 10^3/uL (0.0-0.7); EOSINOPHILS % (AUTO) 7.1 %; HCT - HEMATOCRIT 38.4 % (37.0-47.0); LYMPHOCYTES # (AUTO) 2.2 10^3/uL (1.5-3.5); LYMPHOCYTES % (AUTO) 31.9 %; MEAN CORPUSCULAR HEMOGLOBIN 30.3 pg (27.0-31.0); MEAN CORPUSCULAR HGB CONC 33.9 g/dL (32.0-36.0); MEAN CORPUSCULAR VOLUME 89.5 fL (81.0-99.0); MEAN PLATELET VOLUME 9.4 fL (7.9-10.8); MONOCYTES # (AUTO) 0.5 10^3/uL (0.0-1.0); MONOCYTES % (AUTO) 7.7 %; NEUTROPHILS # (AUTO) 3.4 10^3/uL (1.5-6.6); PLT - PLATELET COUNT 435 10^3/uL (130-450); RED BLOOD COUNT 4.29 10^6/uL (4.20-5.40); RED CELL DISTRIBUTION WIDTH 13.6 % (12.0-15.0); WHITE BLOOD COUNT 6.8 x10^3/uL (4.8-10.8)
[2022-10-21 09:47] LABS: BILIRUBIN,URINE NEGATIVE (NEGATIVE); GLUCOSE, URINE (UA) NEGATIVE (NEGATIVE); KETONES,URINE (UA) NEGATIVE (NEGATIVE); LEUKOCYTE ESTERASE, URINE NEGATIVE (NEGATIVE); NITRITE,URINE NEGATIVE (NEGATIVE); OCCULT BLOOD,URINE NEGATIVE (NEGATIVE); PROTEIN,URINE NEGATIVE (NEGATIVE); UROBILINOGEN,URINE 0.2 (NORMAL) E.U./dL (NORMAL)
[2022-10-21 09:55] LABS: CLARITY,URINE CLEAR (CLEAR)
[2022-10-21 10:23] LABS: BACTERIA,URINE Few /HPF (None Seen); RBC,URINE None Seen /HPF (0-5); SQUAMOUS EPITHELIAL CELL,UR MANY Squamous (<= Few); WBC,URINE 0-3 /HPF (0-5)
[2022-10-22 06:10] LABS: HBsAG SCREEN Negative (Negative)
[2022-10-22 08:10] LABS: RPR Non Reactive (Non Reactive)
[2022-10-22 09:10] LABS: VARICELLA-ZOSTER AB IGG 903 index (Immune >165)
[2022-10-23 02:07] LABS: HCV AB Non Reactive (Non Reactive)
[2022-10-23 04:09] LABS: HIV SCREEN 4TH GENERATION Non Reactive (Non Reactive)
== END 2022-10-21 09:08 | disposition home or self-care (01) ==
LOC: LAB 09:07
PROVIDERS: ATTEND Obstetrics & Gynecology
DX: Z36.89 Encounter for other specified antenatal screening (principal)
CPT/HCPCS: 36415; 81001; 85025; 86592; 86762; 86787; 86803; 86850; 86900; 86901; 87086; 87340; 87389

== ENCOUNTER 2022-10-24 15:58 | Outpatient (CLI) | payer MEDICAID ==
--- NOTE | 2022-10-24 16:59 | Ultrasound Report ---
PROCEDURE: OB First Trimester w/TV INDICATIONS: POSITIVE TEST OUTSIDE/PRIOR DATING DATA: Last menstrual period (LMP): Unknown. LMP-based estimated date of delivery (JANA): Not applicable. First dating scan (date and location): 10/24/2022. Estimated date of delivery (JANA) from first dating scan: 05/18/2023. TECHNIQUE: Real-time scanning was performed of the fetus and maternal pelvic organs, with image documentation. Endovaginal scanning was also performed to better visualize the fetus and maternal ovaries. COMPARISON: None FINDINGS: Single living intrauterine gestation with a heart rate of 169 bpm. [place]-rump length is 37 mm corresponding to a 10 week 4 day gestation. Measurement variability in dating: +/- 4 weeks by LMP, +/- 7 days by mean sac diameter (use before 6 weeks gestation if crown-rump length not able to be measured), +/- 5 days by crown-rump length (6-12 weeks gestation). Maternal organs: Ovaries grossly dose is within the right ovary.. IMPRESSION: Single living intrauterine gestation. Reviewed by: Alonso Bergman MD on 10/24/2022 4:58 PM PST Approved by: Alonso Bergman MD on 10/24/2022 4:58 PM PST Station ID: [id number]
== END 2022-10-24 15:59 | disposition home or self-care (01) ==
LOC: DI 15:58
PROVIDERS: ATTEND Obstetrics & Gynecology
DX: Z32.01 Encounter for pregnancy test, result positive (principal)

== ENCOUNTER 2023-01-27 13:43 | Outpatient (CLI) | payer MEDICAID ==
--- NOTE | 2023-01-27 21:07 | Ultrasound Report ---
PROCEDURE: OB Detailed Eval INDICATIONS: SUPERVISION OF OUTSIDE/PRIOR DATING DATA: Last menstrual period (LMP): Unknown. LMP-based estimated date of delivery (JANA): Not applicable. First dating scan (date and location): 10/24/2022. Estimated date of delivery (JANA) from first dating scan: 05/18/2023. TECHNIQUE: Real-time scanning was performed of the fetus, with image documentation and biometric measurements. Endovaginal scanning: Not performed COMPARISON: 10/24/2022. FINDINGS: General: A single living intrauterine gestation is present. Presentation: Variable Placenta: Placental position is posterior fundal, without previa. Amniotic fluid index: 12.8 cm, 26th percentile for gestational age. heart rate: 145 beats per minute. Maternal cervical canal: 3.8 cm long; normal length is 2.5 cm or more. biometrics: Biparietal diameter: 5.6 cm, 23 weeks and 1 day Head circumference: 21.7 cm, 23 weeks and 5 days Abdominal circumference: 19.4 cm, 24 weeks and 1 day Femur length: 4.3 cm, 23 weeks and 6 days Estimated gestational age from initial scan: 24 weeks and 1 day Composite gestational age from present scan: 23 weeks and 5 days Estimated weight and percentile: 646 g which correlates with the 32nd percentile based off ges tational age Measurement variability in biometric dating: +/- 10 days from 12-20 weeks gestation, +/- 2 weeks from 20-30 weeks gestation, +/- 3 weeks at 30 weeks gestation or later. Anatomic survey: Neuro: Ventricles are normal at less than 10 mm. Cisterna magna is normal at 3-11 mm. Cerebellum i s normal in size and morphology. Nuchal skin fold: Normal at less than 6 mm between 14 and 20 weeks gestational age. Face: Nose and lips, facial profile are normal. Spine: No evidence for spina bifida. Heart: 4-chambered heart is present, with normal ventricular outflow tracts. Diaphragm: Diaphragm is intact. Stomach: Left-sided stomach is present. Kidneys: No hydronephrosis. Normal is less than 5 mm in 2nd trimester, less than 7 mm in 3rd trimester. Cord: 3 vessel cord has orthotopic insertion. Bladder: Normal in size. Extremities: All 4 extremities are visualized. IMPRESSION: 1. Single living intrauterine gestation with estimated sonographic gestational age of approximately 2 3 weeks and 5 days versus approximately 24 weeks and 1 day based off initial scan. Normal interval gr owth has occurred. 2. Estimated weight of approximately 646 g which correlates with the 32nd percentile based off gestational age. 3. Normal second trimester anatomy screening survey. Reviewed by: Vishal Kamara MD on 01/27/2023 9:06 PM PDT Approved by: Vishal Kamara MD on 01/27/2023 9:06 PM PDT Station ID: [id number]
== END 2023-01-27 13:44 | disposition home or self-care (01) ==
LOC: DI 13:43
PROVIDERS: ATTEND Obstetrics & Gynecology
DX: Z34.02 Encounter for supervision of normal first pregnancy, second trimester (principal)

== ENCOUNTER 2023-03-04 15:09 | Outpatient (CLI) | payer MEDICAID ==
[2023-03-04 16:23] LABS: HCT - HEMATOCRIT 32.6 % (37.0-47.0); HGB - HEMOGLOBIN 10.9 g/dL (12.0-16.0); MEAN CORPUSCULAR HEMOGLOBIN 30.4 pg (27.0-31.0); MEAN CORPUSCULAR HGB CONC 33.4 g/dL (32.0-36.0); MEAN CORPUSCULAR VOLUME 90.8 fL (81.0-99.0); MEAN PLATELET VOLUME 9.2 fL (7.9-10.8); RED BLOOD COUNT 3.59 10^6/uL (4.20-5.40); RED CELL DISTRIBUTION WIDTH 14.1 % (12.0-15.0)
== END 2023-03-04 15:10 | disposition home or self-care (01) ==
LOC: LAB 15:09
PROVIDERS: ATTEND Obstetrics & Gynecology
DX: O09.522 Supervision of elderly multigravida, second trimester (principal)
CPT/HCPCS: 36415; 82950; 85027

== ENCOUNTER 2023-04-11 15:52 | Outpatient (CLI) | payer MEDICAID ==
--- NOTE | 2023-04-11 21:02 | Ultrasound Report ---
PROCEDURE: OB F/U or Repeat INDICATIONS: GESTATIONAL DIABETES OUTSIDE/PRIOR DATING DATA: Last menstrual period (LMP): Unknown. LMP-based estimated date of delivery (JANA): Unknown. First dating scan (date and location): 10/24/2022. Estimated date of delivery (JANA) from first dating scan: 05/18/2023. The below data below was generated using the ultrasound JANA of 123 TECHNIQUE: Real-time scanning was performed of the fetus, with image documentation and biometric measurements. Endovaginal scanning: Not performed. COMPARISON: OB ultrasound 01/27/2023 FINDINGS: General: A single living intrauterine gestation is present. Presentation: Vertex Placenta: Placental position is posterior, without previa. Amniotic fluid index: 12.4 cm, within normal limits for gestational age. heart rate: 132 beats per minute. Maternal cervical canal: 3 points at cm long; normal length is 2.5 cm or more. biometrics: Biparietal diameter: 8.2 cm 32 weeks 5 days Head circumference: 31.4 cm 35 weeks 2 days Abdominal circumference: 29.7 cm 33 weeks 5 days Femur length: 6.4 cm 33 weeks 0 days Estimated gestational age from initial scan: 34 weeks 5 days Composite gestational age from present scan: 33 weeks 5 days Estimated weight and percentile: 2227 g 17th percentile Measurement variability in biometric dating: +/- 10 days from 12-20 weeks gestation, +/- 2 weeks from 20-30 weeks gestation, +/- 3 weeks at 30 weeks gestation or more. Other: BPP: Tone: 2 Movement: 2 Respiration: 2 Largest pocket: 2 Umbilical systolic to diastolic artery ratio is 2.7, 2.5, 2.8 IMPRESSION: Single live anterior with ultrasound gestational age today 33 weeks 5 days. weight is at the 70th percentile. BPP 8 out of 8 Reviewed by: Ashley Edgar MD on 04/11/2023 9:01 PM PDT Approved by: Ashley Edgar MD on 04/11/2023 9:01 PM PDT Station ID: [id number]
--- NOTE | 2023-04-11 21:03 | Ultrasound Report ---
PROCEDURE: OB Biophysical Profile INDICATIONS: GESTATIONAL DIABETES OUTSIDE/PRIOR DATING DATA: Last menstrual period (LMP): Unknown. LMP-based estimated date of delivery (JANA): Unknown. First dating scan (date and location): 10/24/2022. Estimated date of delivery (JANA) from first dating scan: 05/18/2023. The below data below was generated using the ultrasound JANA of 123 TECHNIQUE: Real-time scanning was performed of the fetus, with image documentation and biometric measurements. Endovaginal scanning: Not performed. COMPARISON: OB ultrasound 01/27/2023 FINDINGS: General: A single living intrauterine gestation is present. Presentation: Vertex Placenta: Placental position is posterior, without previa. Amniotic fluid index: 12.4 cm, within normal limits for gestational age. heart rate: 132 beats per minute. Maternal cervical canal: 3 points at cm long; normal length is 2.5 cm or more. biometrics: Biparietal diameter: 8.2 cm 32 weeks 5 days Head circumference: 31.4 cm 35 weeks 2 days Abdominal circumference: 29.7 cm 33 weeks 5 days Femur length: 6.4 cm 33 weeks 0 days Estimated gestational age from initial scan: 34 weeks 5 days Composite gestational age from present scan: 33 weeks 5 days Estimated weight and percentile: 2227 g 17th percentile Measurement variability in biometric dating: +/- 10 days from 12-20 weeks gestation, +/- 2 weeks from 20-30 weeks gestation, +/- 3 weeks at 30 weeks gestation or more. Other: BPP: Tone: 2 Movement: 2 Respiration: 2 Largest pocket: 2 Umbilical systolic to diastolic artery ratio is 2.7, 2.5, 2.8 IMPRESSION: Single live anterior with ultrasound gestational age today 33 weeks 5 days. weight is at the 70th percentile. BPP 8 out of 8 Reviewed by: Ashley Edgar MD on 04/11/2023 9:02 PM PDT Approved by: Ashley Edgar MD on 04/11/2023 9:02 PM PDT Station ID: [id number]
== END 2023-04-11 15:53 | disposition home or self-care (01) ==
LOC: DI 15:52
PROVIDERS: ATTEND Obstetrics & Gynecology
DX: O24.419 Gestational diabetes mellitus in pregnancy, unspecified control (principal); Z3A.33 33 weeks gestation of pregnancy

== ENCOUNTER 2023-04-14 15:57 | Outpatient (CLI) | payer MEDICAID ==
[2023-04-14 16:30] VITALS: BP 115/63
--- NOTE | 2023-04-14 16:31 | PROCEDURE REPORT ---
- HPI Vital Signs Temperature 97.9 F 04/14/23 16:22 Heart Rate 84 04/14/23 16:22 Respiratory Rate 18 04/14/23 16:22 Blood Pressure 115/63 04/14/23 16:22 Temperature 97.9 F 04/14/23 16:22 Heart Rate 84 04/14/23 16:22 Respiratory Rate 18 04/14/23 16:22 Blood Pressure 115/63 04/14/23 16:22 O2 Saturation If not protocol: Oxygen Flow, liters/minute - NST Procedure NST Procedure Start Time 14:00 Stop Time 15:00 - Results and Plan Plan: Patient is a 48-year-old G7, P6 at 35 weeks 0 days gestation here for scheduled NST. NST Performed 04/14/2023 NST Read 04/14/2023 FHT: 135 bpm baseline, moderate variability, accelerations present, no decelerations. Reactive NST [place]: Quiescent Diagnosis 35 weeks gestation Gestational diabetes Continue with twice-weekly NST.
== END 2023-04-14 17:30 | disposition home or self-care (01) ==
LOC: WFO 15:57 → FBP 16:01 → WFO 17:30
PROVIDERS: ATTEND Obstetrics & Gynecology
DX: O24.419 Gestational diabetes mellitus in pregnancy, unspecified control (principal); Z3A.35 35 weeks gestation of pregnancy
CPT/HCPCS: 59025

== ENCOUNTER 2023-04-17 15:58 | Outpatient (CLI) | payer MEDICAID ==
[2023-04-17 16:16] VITALS: BP 125/74; O2SAT 100
--- NOTE | 2023-04-17 17:16 | PROCEDURE REPORT ---
- HPI Current EDU 05/19/23 Gestation 35 Weeks and 3 Days 7 Para 6 Vital Signs Temperature 97.9 F 04/17/23 16:11 Heart Rate 81 04/17/23 16:11 Respiratory Rate 18 04/17/23 16:11 Blood Pressure 125/74 04/17/23 16:11 O2 Saturation 100 04/17/23 16:11 Temperature 97.9 F 04/17/23 16:17 Heart Rate 80 04/17/23 16:17 Respiratory Rate 18 04/17/23 16:17 Blood Pressure 125/74 04/17/23 16:17 O2 Saturation 100 04/17/23 16:11 If not protocol: Oxygen Flow, liters/minute - NST Procedure NST Procedure Start Date 04/17/23 Start Time 16:14 Stop Time 17:25 Vibroacoustic Stimulation Used Yes Patient States Movement Yes - Results and Plan Plan: Patient is a 48-year-old G7, P6 at 35 weeks 3 days gestation here for scheduled NST. NST Performed 04/17/2023 NST Read 04/17/2023 FHT: 135 bpm baseline, moderate variability, accelerations present, no decelerations. Reactive NST [place]: Quiescent Diagnosis 35 weeks gestation Gestational diabetes, A2 controlled with oral antihyperglycemics Continue with twice-weekly NST.
== END 2023-04-17 17:20 | disposition home or self-care (01) ==
LOC: WFO 15:58 → FBP 16:00 → WFO 17:20
PROVIDERS: ATTEND Obstetrics & Gynecology
DX: O24.415 Gestational diabetes mellitus in pregnancy, controlled by oral hypoglycemic drugs (principal); Z3A.35 35 weeks gestation of pregnancy
CPT/HCPCS: 59025

== ENCOUNTER 2023-04-20 06:54 | Outpatient (CLI) | payer MEDICAID ==
--- NOTE | 2023-04-20 21:12 | Ultrasound Report ---
PROCEDURE: OB Biophysical Profile INDICATIONS: GESTATIONAL DIABETES OUTSIDE/PRIOR DATING DATA: Last menstrual period (LMP): Unknown. LMP-based estimated date of delivery (JANA): Not applicable. First dating scan (date and location): 10/24/2022. Estimated date of delivery (JANA) from first dating scan: 05/18/2023. TECHNIQUE: Real-time scanning was performed of the fetus, with image documentation. Biophysical pro file was also obtained. COMPARISON: 04/11/2023, 02/26/2023, 10/24/2022 FINDINGS: General: A single live intrauterine gestation is present. Presentation: Vertex Placenta: Placental position is posterior fundal, without previa. Amniotic fluid index: 10.9 cm, within normal limits for gestational age. heart rate: 140 beats per minute. Maternal cervical canal: 2.5 cm long; normal length is 2.5 cm or more. The cervix appears closed. Biophysical profile: Tone: 2 points. Movement: 2 points. Respiration: 2 points. Largest pocket of fluid: 2 points. Umbilical artery Doppler: Placenta: 2.9 Mid: 2.16 Abdominal 2.02 IMPRESSION: Normal biophysical profile, 03/25 points. Normal umbilical artery Dopplers. Reviewed by: Cheo Sheehan MD on 04/20/2023 8:11 PM MARK Approved by: Cheo Sheehan MD on 04/20/2023 8:11 PM MARK Station ID: [id number]
== END 2023-04-20 06:55 | disposition home or self-care (01) ==
LOC: DI 06:54
PROVIDERS: ATTEND Obstetrics & Gynecology
DX: O24.419 Gestational diabetes mellitus in pregnancy, unspecified control (principal); Z3A.00 Weeks of gestation of pregnancy not specified

== ENCOUNTER 2023-04-20 08:33 | Outpatient (CLI) | payer MEDICAID ==
[2023-04-20 08:42] VITALS: BP 121/70
--- NOTE | 2023-04-25 18:55 | PROCEDURE REPORT ---
- HPI Diagnosis/Indication for NST: Gestational Diabetes Current EDU 05/19/23 Gestation 35 Weeks and 6 Days 7 Para 6 Vital Signs Temperature 98.1 F 04/20/23 08:40 Heart Rate 90 04/20/23 08:40 Respiratory Rate 16 04/20/23 08:40 Blood Pressure 121/70 04/20/23 08:40 Temperature 98.1 F 04/20/23 08:40 Heart Rate 90 04/20/23 08:40 Respiratory Rate 16 04/20/23 08:40 Blood Pressure 121/70 04/20/23 08:40 O2 Saturation If not protocol: Oxygen Flow, liters/minute - NST Procedure NST Procedure Start Date 04/20/23 Start Time 08:40 Stop Time 09:06 Vibroacoustic Stimulation Used No Patient States Movement Yes EFM: 140s, moderate variability, positive 15x15 accelerations, no decelerations [place]: no contractions BPP prior to NST 03/25 NST reactive 05/27/Cat 1 Performed and read 04/20/23 - Results and Plan Plan: 48yo at 35.6w presenting for scheduled NST for GDMA2 - NST reactive - Discharge to home, follow up as scheduled
== END 2023-04-20 09:15 | disposition home or self-care (01) ==
LOC: WFO 08:33 → FBP 08:35 → WFO 09:15
PROVIDERS: ATTEND Obstetrics & Gynecology
DX: O24.419 Gestational diabetes mellitus in pregnancy, unspecified control (principal); Z3A.35 35 weeks gestation of pregnancy
CPT/HCPCS: 59025

== ENCOUNTER 2023-04-23 14:54 | Outpatient (CLI) | payer MEDICAID ==
[2023-04-23 16:59] VITALS: BP 125/67
--- NOTE | 2023-04-23 20:25 | Ultrasound Report ---
PROCEDURE: OB Biophysical Profile INDICATIONS: Gestational diabetes OUTSIDE/PRIOR DATING DATA: Last menstrual period (LMP): Unknown. LMP-based estimated date of delivery (JANA): Unknown. First dating scan (date and location): 10/24/2022. Estimated date of delivery (JANA) from first dating scan: 05/18/2023. The below data below was generated using the working JANA of 05/18/2023 TECHNIQUE: Real-time scanning was performed of the fetus, with image documentation and biometric celina surements. Biophysical profile was also obtained. Endovaginal scanning: None COMPARISON: None. FINDINGS: General: A single living intrauterine gestation is present. Presentation: Vertex Placenta: Placental position is posterior, without previa. Amniotic fluid index: 9.0 cm, normal for gestational age. heart rate: 133 beats per minute. Maternal cervical canal: 3.2 cm long; normal length is 2.5 cm or more. Estimated gestational age from initial scan: 36 week 3 day Biophysical profile: Tone: 2 points. Movement: 2 points. Respiration: 2 points. Largest pocket of fluid: 2 points. Umbilical artery Doppler: 2.08, 2.24, 2.66 IMPRESSION: Single live intrauterine consistent with a 36 week 3 day gestation. Biophysical profile score 8 out of 8. GERRI 9.0 cm, 10th percentile Reviewed by: Darwin Schmitt MD on 04/23/2023 7:24 PM AKMULU Approved by: Darwin Schmitt MD on 04/23/2023 7:24 PM AKDT Station ID: [id number]
--- NOTE | 2023-04-24 11:07 | PROCEDURE REPORT ---
- HPI Diagnosis/Indication for NST: Gestational Hypertension Current EDU 05/19/23 Gestation 36 Weeks and 2 Days 7 Para 6 Vital Signs Temperature 98.2 F 04/23/23 16:40 Heart Rate 82 04/23/23 16:40 Respiratory Rate 18 04/23/23 16:40 Blood Pressure 125/67 04/23/23 16:40 Temperature 98.2 F 04/23/23 16:40 Heart Rate 82 04/23/23 16:40 Respiratory Rate 18 04/23/23 16:40 Blood Pressure 125/67 04/23/23 16:40 O2 Saturation If not protocol: Oxygen Flow, liters/minute - NST Procedure NST Procedure Start Date 04/23/23 Start Time 16:10 Stop Time 16:55 Vibroacoustic Stimulation Used No Patient States Movement Yes 36 weeks and 2 days. Gestational hypertension gestational diabetes 130, moderate variability, positive accelerations, negative decelerations. Reactive NST.
--- NOTE | 2023-04-24 12:46 | Labor Flowsheet ---
Labor Flowsheet Datetime Report Generated by CPN: 04/24/2023 12:46 Datetime: 04/24/2023 12:43 Pulse: 101 SpO2 (%): 100 Datetime: 04/24/2023 12:15 VITAL SIGNS NBP Sys/Zuleyma/Mean (mmHg): 118 : 77 : 87 Datetime: 04/20/2023 08:39 PATIENT CARE Patient Position/Activity: Left Lateral Datetime: 04/14/2023 17:00 Patient Care Comments: sitting up and PO hydrating Datetime: 04/14/2023 16:54 ASSESSMENT A Comments: audible movement
== END 2023-04-23 17:00 | disposition home or self-care (01) ==
LOC: DI 14:54 → FBP 16:35 → DI 17:00
PROVIDERS: ATTEND Obstetrics & Gynecology
DX: O24.419 Gestational diabetes mellitus in pregnancy, unspecified control (principal); Z3A.36 36 weeks gestation of pregnancy
CPT/HCPCS: 59025

== ENCOUNTER 2023-04-24 08:00 | Outpatient (CLI) | payer MEDICAID | END 2023-04-24 23:59 | disposition home or self-care (01) | LOC: LAB.WC 08:00 | PROVIDERS: ATTEND Obstetrics & Gynecology | DX: Z36.85 Encounter for antenatal screening for Streptococcus B (principal) | CPT/HCPCS: 87797 ==

== ENCOUNTER 2023-04-26 16:29 | Outpatient (CLI) | payer MEDICAID ==
[2023-04-26 16:56] VITALS: BP 125/76
--- NOTE | 2023-04-26 22:12 | PROCEDURE REPORT ---
- HPI Diagnosis/Indication for NST: Gestational Diabetes Current EDU 05/19/23 Gestation 36 Weeks and 5 Days 7 Para 6 Vital Signs Temperature 98.4 F 04/26/23 16:47 Heart Rate 90 04/26/23 16:47 Respiratory Rate 16 04/26/23 16:47 Blood Pressure 125/76 04/26/23 16:47 Temperature 98.4 F 04/26/23 16:47 Heart Rate 90 04/26/23 16:47 Respiratory Rate 16 04/26/23 16:47 Blood Pressure 125/76 04/26/23 16:47 O2 Saturation If not protocol: Oxygen Flow, liters/minute NST: 125 mod oliver + A cells no D cells reactive - NST Procedure NST Procedure Start Date 04/26/23 Start Time 16:45 Stop Time 17:15 Vibroacoustic Stimulation Used No Patient States Movement Yes - Results and Plan Findings/Impression: reassuring status Plan: D/C home with precautions, continue scheduled care
== END 2023-04-26 17:30 | disposition home or self-care (01) ==
LOC: WFO 16:29 → FBP 16:38 → WFO 17:30
PROVIDERS: ATTEND Obstetrics & Gynecology
DX: O24.419 Gestational diabetes mellitus in pregnancy, unspecified control (principal); Z3A.36 36 weeks gestation of pregnancy
CPT/HCPCS: 59025

== ENCOUNTER 2023-04-30 15:01 | Outpatient (CLI) | payer MEDICAID ==
--- NOTE | 2023-04-30 18:14 | Ultrasound Report ---
PROCEDURE: OB Biophysical Profile INDICATIONS: GESTATIONAL DIABETES OUTSIDE/PRIOR DATING DATA: Last menstrual period (LMP): Unknown. First dating scan (date and location): 10/24/2022. Estimated date of delivery (JANA) from first dating scan: 05/18/2023. TECHNIQUE: Real-time scanning was performed of the fetus, with image documentation. Biophysical pro file was also obtained. umbilical artery Doppler performed Endovaginal scanning: Not performed COMPARISON: 04/23/2023. FINDINGS: General: A single living intrauterine gestation is present. Presentation: Vertex Placenta: Placental position is posterior, without previa. Amniotic fluid index: 7.4 cm, low normal for gestational age. heart rate: 145 beats per minute. Maternal cervical canal: 2.1 cm long. Possible funneling with length of funneling1.8 cm. Estimated gestational age from initial scan: 37 weeks 3 days Biophysical profile: Tone: 2 points. Movement: 2 points. Respiration: 2 points. Largest pocket of fluid: 2 points. Umbilical artery Doppler: S:D ratios 1.9-2.4, preserved antegrade diastolic flow. IMPRESSION: 1. Single living intrauterine in vertex presentation. 2. Biophysical profile score 8/8. 3. Cervical length of 2.1 cm measured transabdominally, possible cervical funneling present. Follow-u p can be performed as clinically indicated, for example in 1-2 weeks or other interval at clinical di scretion. 4. Amniotic fluid index of 7.4 cm, low normal. Preliminary report called to labor and delivery at 1540 hours by the machine sprayer. Reviewed by: Vicente Garvin MD on 04/30/2023 6:13 PM PDT Approved by: Vicente Garvin MD on 04/30/2023 6:13 PM PDT Station ID: [id number]
== END 2023-04-30 15:02 | disposition home or self-care (01) ==
LOC: DI 15:01
PROVIDERS: ATTEND Obstetrics & Gynecology
DX: O24.419 Gestational diabetes mellitus in pregnancy, unspecified control (principal); Z3A.37 37 weeks gestation of pregnancy